=== PATIENT | female | born 1995 | race Hispanic/Latino ===

== ENCOUNTER 2021-04-02 14:02 | Emergency (ER) | payer SELFPAY ==
[~2021-04-02] VITALS: Ht 154.9 cm; Wt 143.3 kg
[2021-04-02] MEDS ORDERED: SODIUM CHLORIDE 0.9% 1000ML 1,000 ML IV STA (14:39)
[2021-04-02 15:14] LABS: BASOPHILS # (AUTO) 0.1 (0.0-0.1); BASOPHILS % 0.6 % (0.0-1.0); EOSINOPHILS # (AUTO) 0.1 (0.0-0.4); EOSINOPHILS % 0.8 % (0.0-6.0); HEMATOCRIT 43.1 % (34.2-44.1); HEMOGLOBIN 13.6 g/dL (12.0-16.0); LYMPHOCYTES # (AUTO) 3.1 (1.0-3.2); LYMPHOCYTES % 26.1 % (18.0-39.1); MEAN CORPUSCULAR HGB CONC 31.6 g/dL (31-35); MEAN CORPUSCULAR VOLUME 82.3 fL (81-99); MONOCYTES # (AUTO) 0.6 (0.2-0.8); MONOCYTES % 4.8 % (4.4-11.3); NEUTROPHILS % 67.1 % (38.7-80.0); PLATELET COUNT 379 x10e3/uL (140-360); RED BLOOD COUNT 5.24 x10e6/uL (3.6-5.1); RED CELL DISTRIBUTION WIDTH 13.8 % (11.7-14.4)
[2021-04-02 15:20] LABS: CLARITY,URINE SL CLOUDY (CLEAR); COLOR,URINE STRAW (YELLOW); KETONES,URINE 1+ (NEGATIVE); LEUKOCYTE ESTERASE ,URINE NEGATIVE (NEGATIVE); NITRITE,URINE NEGATIVE (NEGATIVE); PROTEIN,URINE DIPSTICK 1+ (NEGATIVE); URINE UROBILINOGEN 0.2 mg/dL (0.2 - 1)
[2021-04-02 15:31] LABS: ALBUMIN 3.5 g/dL (3.5-5.0); ALBUMIN/GLOBULIN RATIO 0.8 (0.8-2.0); ANION GAP 14.1 mmol/L (8-16); CALCIUM 9.3 mg/dL (8.4-10.2); CREATININE, SERUM 0.83 mg/dL (0.57-1.11); POTASSIUM 4.1 mmol/L (3.5-5.1)
[2021-04-02 15:33] LABS: BACTERIA,URINE FEW /HPF; EPITHELIAL CELLS,URINE MANY /LPF
[2021-04-02] MEDS ORDERED: INSULIN REGULAR, HUMAN 100 UNIT/1 ML IV ONE (16:30)
[2021-04-02] MEDS ORDERED: KETOROLAC TROMETHAMINE 30 MG/ML VIAL IV STA (17:53)
[2021-04-02 19:42] VITALS: BP 119/75
== END 2021-04-02 19:55 | disposition home or self-care (01) ==
LOC: ER 14:53
DX: E11.65 Type 2 diabetes mellitus with hyperglycemia (principal); M54.5 Low back pain; G89.29 Other chronic pain; Z91.14 Patient's other noncompliance with medication regimen; E66.9 Obesity, unspecified
CPT/HCPCS: 36415; 72110; 80053; 81001; 81025; 82948; 85025; 99284; J1817; J1885; J7030